=== PATIENT | male | born 1965 | race Caucasian/White ===

== ENCOUNTER 2021-04-05 17:25 | Inpatient (IN) | payer OTHER, MEDICARE ==
[~2021-04-05] VITALS: Ht 162.6 cm; Wt 59.6 kg
[2021-04-05] MEDS ORDERED: FLOMAX0.4 MG PO (17:49)
[2021-04-05] MEDS ORDERED: LIPITOR40 MG PO (17:50)
[2021-04-05] MEDS ORDERED: ATARAX 25 MG TA25 MG PO (17:50)
[2021-04-05] MEDS ORDERED: PHENOBARBITAL32.4 MG PO (17:50)
[2021-04-05 18:37] LABS: BASOPHILS 0.3 % (0-2); EOSINOPHILS 0.3 % (0-7); HEMATOCRIT 45.8 % (42.0-54.0); HEMOGLOBIN 15.8 g/dL (13.5-17.5); LYMPHOCYTES 7.2 % (15-50); MCH 31.9 pg (26.0-34.0); MCHC 34.4 g/dL (31.0-37.0); MCV 92.9 fL (80.0-100.0); MEAN PLATELET VOLUME 7.7 fL (7.4-10.4); MONOCYTES 7.5 % (2-11); NEUTROPHILS 84.7 % (40-80); RBC 4.94 10x6/uL (4.20-6.10); RDW 14.1 % (11.5-14.5); WBC 10.2 10x3/uL (4.8-10.8)
[2021-04-05 18:45] LABS: PLATELET COUNT 185 10x3/uL (130-400)
[2021-04-05 18:47] LABS: CALC OSMOLALITY 251 mosm/kg (275-300); CALCIUM 8.8 mg/dL (8.5-10.1); CARBON DIOXIDE 29.3 mmol/L (21.0-32.0); CHLORIDE - SERUM 90 mmol/L (98-107); GLUCOSE 113 mg/dL (74-106); SODIUM 125 mmol/L (136-145); UREA NITROGEN 11 mg/dL (7-18); eGFR NON AFRICAN AMERICAN 82 mL/min (90-120)
[2021-04-05 18:53] LABS: ALBUMIN 3.5 g/dL (3.4-5.0); ALKALINE PHOSPHATASE 112 U/L (30-120); ALT (SGPT) 25 U/L (10-68); BILIRUBIN - TOTAL 0.46 mg/dL (0.2-1.3); PROTEIN - SERUM 7.4 g/dL (6.4-8.2)
[2021-04-05 19:07] LABS: PRO BNP 48 pg/mL (0-125)
[2021-04-05 19:09] LABS: TROPONIN-I < 0.017 ng/mL (0.000-0.060)
[2021-04-05 19:30] LABS: APTT 32.8 SECONDS (22.8-39.4); INR 1.24 (0.85-1.17); PROTIME 14.5 SECONDS (11.6-15.0)
[2021-04-05 19:32] LABS: D-DIMER-QUANTITATIVE 0.6 ug/mLFEU (0.20-0.54)
--- NOTE | 2021-04-05 19:35 | NUR ---
PT REPORT GIVEN TO DARRION CHANDRA
[2021-04-05 19:44] LABS: SARS-CoV-2 ANTIGEN NEGATIVE- SARS-COV-2 (NEGATIVE)
[2021-04-05 23:25] VITALS: BP 98/59
--- NOTE | 2021-04-06 02:40 | NUR ---
COMING OUT OF ROOM ACROSS [facility] FROM PT NOTED PT AND HIS MOTHER IN FLOOR. MOTHER STATES SHE HAD ATTEMPTED TO HELP PT TO BEDSIDE COMMODE BY HERSELF WHEN PT BECOME UNSTEADY AND PULLED HER TO FLOOR WITH HIM. NO INJURY NOTED TO PT. PT'S MOTHER P/W ABRASION POSTERIOR RIGHT FOREARM. DENIES OTHER INJURY. AREA CLEANED AND DRESSED. INSTRUCTED MOTHER TO CONTACT STAFF IF PT NEEDED UP FOR ANY REASON. PT WAS NOTED TO HAVE DEFECATED. ATTEMPTED TO CLEAN PT W/WIPES BUT PT REFUSES TO ROLL OR COOPERATE WHEN BACK IN BED.
--- NOTE | 2021-04-06 02:43 | NUR ---
CONTACTED SULEMAN RAO FOR ATIVAN ORDER. ORDER FOR 0.5MG ATIVAN IV OBTAINED.
[2021-04-06 03:08] VITALS: BP 104/58
--- NOTE | 2021-04-06 03:15 | NUR ---
PT CONTINUES TO REFUSE TO LAY BACK OR ROLL OVER TO ALLOW HIMSELF TO BE CLEANED BY STAFF. PT'S MOTHER AT BEDSIDE. WILL CONTINUE TO MONITOR. MOTHER STATES SHE WILL CONTACT STAFF WHEN HE LAYS BACK AND BECOMES COOPERATIVE.
[2021-04-06 04:19] LABS: BILIRUBIN NEGATIVE (NEGATIVE); KETONE NEGATIVE (NEGATIVE); NITRITE NEGATIVE (NEGATIVE); UROBILINOGEN NORMAL mg/dL (< 2)
[2021-04-06 04:33] LABS: UDS - AMPHET NEGATIVE QUAL (NEGATIVE); UDS - BARB NEGATIVE QUAL (NEGATIVE); UDS - BENZO NEGATIVE QUAL (NEGATIVE); UDS - COCAINE NEGATIVE QUAL (NEGATIVE); UDS - OPIATE POSITIVE QUAL (NEGATIVE); UDS - PCP NEGATIVE QUAL (NEGATIVE); UDS - THC NEGATIVE QUAL (NEGATIVE)
[2021-04-06 05:36] LABS: BASOPHILS 0.1 % (0-2); EOSINOPHILS 0 % (0-7); HEMATOCRIT 39.5 % (42.0-54.0); HEMOGLOBIN 13.5 g/dL (13.5-17.5); MCH 31.9 pg (26.0-34.0); MCHC 34.1 g/dL (31.0-37.0); MCV 93.5 fL (80.0-100.0); NEUTROPHILS 93.9 % (40-80); PLATELET COUNT 173 10x3/uL (130-400); RBC 4.22 10x6/uL (4.20-6.10); RDW 14.1 % (11.5-14.5); WBC 10.8 10x3/uL (4.8-10.8)
[2021-04-06 05:45] LABS: ALBUMIN 2.8 g/dL (3.4-5.0); ALKALINE PHOSPHATASE 82 U/L (30-120); ALT (SGPT) 23 U/L (10-68); BILIRUBIN - TOTAL 0.31 mg/dL (0.2-1.3); CALC OSMOLALITY 255 mosm/kg (275-300); CARBON DIOXIDE 23.2 mmol/L (21.0-32.0); CHLORIDE - SERUM 96 mmol/L (98-107); GLUCOSE 138 mg/dL (74-106); MAGNESIUM - SERUM 1.6 mg/dL (1.8-2.4); POTASSIUM - SERUM 4.4 mmol/L (3.5-5.1); SODIUM 127 mmol/L (136-145); UREA NITROGEN 9 mg/dL (7-18); eGFR NON AFRICAN AMERICAN 82 mL/min (90-120)
[2021-04-06 08:00] VITALS: BP 96/51
[2021-04-06 09:46] VITALS: Ht 162.6 cm; Wt 59.6 kg
[2021-04-06 09:57] VITALS: BP 90/59
[2021-04-06 21:00] VITALS: BP 95/41
[2021-04-07] VITALS: BP 94/43
--- NOTE | 2021-04-07 01:14 | NUR ---
REPORT RECEIVED. PT A&O, UP IN BED WITH MOM AT BEDSIDE. NO S/S OF DISTRESS OBSERVED. RR EVEN & UNLABORED ON RA. IV TO R FA INFUSING NS AT 75 CC/HR. BED LOCKED AND LOWERED, CL IN REACH. ASSESSMENT COMPLETE. WILL CONT POC.
[2021-04-07 04:00] VITALS: BP 106/49
[2021-04-07 06:40] LABS: BASOPHILS 0.5 % (0-2); EOSINOPHILS 0.6 % (0-7); HEMATOCRIT 37.3 % (42.0-54.0); HEMOGLOBIN 12.7 g/dL (13.5-17.5); LYMPHOCYTES 11.6 % (15-50); MCH 31.7 pg (26.0-34.0); MEAN PLATELET VOLUME 8.2 fL (7.4-10.4); MONOCYTES 7.9 % (2-11); NEUTROPHILS 79.4 % (40-80); PLATELET COUNT 154 10x3/uL (130-400); RBC 4.01 10x6/uL (4.20-6.10); RDW 14.5 % (11.5-14.5)
[2021-04-07 06:56] LABS: WBC 7.6 10x3/uL (4.8-10.8)
[2021-04-07 07:24] LABS: ALBUMIN 2.6 g/dL (3.4-5.0); ANION GAP 8.5 mmol/L (8-16); BILIRUBIN - TOTAL 0.41 mg/dL (0.2-1.3); C-REACTIVE PROTEIN 10.3 mg/dL (0.0-0.9); CARBON DIOXIDE 26.1 mmol/L (21.0-32.0); CREATININE - SERUM 1.1 mg/dL (0.6-1.3); MAGNESIUM - SERUM 1.6 mg/dL (1.8-2.4); POTASSIUM - SERUM 3.6 mmol/L (3.5-5.1); PROTEIN - SERUM 5.9 g/dL (6.4-8.2)
[2021-04-07 07:56] VITALS: BP 122/70
--- NOTE | 2021-04-07 19:30 | NUR ---
PT IN BED, AAO X 3, MOTHER AT BEDSIDE, PT MENTALLY CHALLANGED, PT RESP EVEN AND UNLABORED, NO DISTRESS NOTED, CL IN REACH, SR UP X 2.
[2021-04-08] VITALS: BP 96/47
--- NOTE | 2021-04-08 03:09 | NUR ---
I have reviewed this patient and I concur with the Shift Assessment completed by the Licensed Practical Nurse today this shift.
[2021-04-08 04:44] VITALS: BP 149/72
[2021-04-08 08:01] LABS: BASOPHILS 0.1 % (0-2); EOSINOPHILS 0 % (0-7); HEMATOCRIT 39.1 % (42.0-54.0); HEMOGLOBIN 13.5 g/dL (13.5-17.5); LYMPHOCYTES 5.2 % (15-50); MCH 31.9 pg (26.0-34.0); MCHC 34.4 g/dL (31.0-37.0); MCV 92.7 fL (80.0-100.0); MEAN PLATELET VOLUME 7.9 fL (7.4-10.4); MONOCYTES 2.5 % (2-11); NEUTROPHILS 92.2 % (40-80); PLATELET COUNT 158 10x3/uL (130-400); RBC 4.22 10x6/uL (4.20-6.10); RDW 14.6 % (11.5-14.5); WBC 7.3 10x3/uL (4.8-10.8)
[2021-04-08 08:08] LABS: ALBUMIN 3.1 g/dL (3.4-5.0); ALKALINE PHOSPHATASE 95 U/L (30-120); ALT (SGPT) 30 U/L (10-68); BILIRUBIN - TOTAL 0.34 mg/dL (0.2-1.3); CALC OSMOLALITY 262 mosm/kg (275-300); CALCIUM 8.4 mg/dL (8.5-10.1); CARBON DIOXIDE 24.3 mmol/L (21.0-32.0); CHLORIDE - SERUM 98 mmol/L (98-107); CREATININE - SERUM 0.9 mg/dL (0.6-1.3); GLUCOSE 142 mg/dL (74-106); MAGNESIUM - SERUM 1.7 mg/dL (1.8-2.4); POTASSIUM - SERUM 3.8 mmol/L (3.5-5.1); PROTEIN - SERUM 6.5 g/dL (6.4-8.2); SODIUM 131 mmol/L (136-145); UREA NITROGEN 8 mg/dL (7-18); eGFR NON AFRICAN AMERICAN > 90 mL/min (90-120)
--- NOTE | 2021-04-08 08:26 | NUR ---
AM MEDS GIVEN AT THIS TIME WITH ASSISTANCE FROM MOTHER AT BEDSIDE. BREAKFAST TRAY GIVEN, NO FURTHER NEEDS VOICED. NO PAIN REPORTED. IV ANTIBIOTICS INFUSING. CLWR.
--- NOTE | 2021-04-08 10:51 | NUR ---
PT SITTING ON SIDE OF BED, RR EVEN NON LABORED. PT DAD AT BEDSIDE. NO NEEDS VOICED. CLWR.
[2021-04-08 11:29] LABS: APTT 31.7 SECONDS (22.8-39.4); INR 1.19 (0.85-1.17)
[2021-04-08 20:39] VITALS: BP 97/48
--- NOTE | 2021-04-08 21:08 | NUR ---
PT IN CHAIR WITH MOM AT SIDE, PT RESP EVEN AND UNLABORED, NO DISTRESS NOTED, CL IN REACH, SR UP X 2.
[2021-04-08 23:36] VITALS: BP 122/54
[2021-04-09 04:17] VITALS: BP 137/68
--- NOTE | 2021-04-09 04:59 | NUR ---
I have reviewed this patient and I concur with the Shift Assessment completed by the Licensed Practical Nurse today this shift.
[2021-04-09 06:06] LABS: BASOPHILS 0.1 % (0-2); EOSINOPHILS 0 % (0-7); HEMATOCRIT 37.8 % (42.0-54.0); HEMOGLOBIN 13.2 g/dL (13.5-17.5); LYMPHOCYTES 9.1 % (15-50); MCH 32.2 pg (26.0-34.0); MCHC 34.9 g/dL (31.0-37.0); MCV 92.4 fL (80.0-100.0); MEAN PLATELET VOLUME 7.9 fL (7.4-10.4); MONOCYTES 2.9 % (2-11); NEUTROPHILS 87.9 % (40-80); PLATELET COUNT 182 10x3/uL (130-400); RBC 4.09 10x6/uL (4.20-6.10); RDW 14.6 % (11.5-14.5); WBC 6.7 10x3/uL (4.8-10.8)
[2021-04-09 06:25] LABS: ALKALINE PHOSPHATASE 92 U/L (30-120); ALT (SGPT) 31 U/L (10-68); BILIRUBIN - TOTAL 0.28 mg/dL (0.2-1.3); CALC OSMOLALITY 267 mosm/kg (275-300); CALCIUM 8.6 mg/dL (8.5-10.1); CARBON DIOXIDE 27.5 mmol/L (21.0-32.0); CHLORIDE - SERUM 99 mmol/L (98-107); GLUCOSE 124 mg/dL (74-106); MAGNESIUM - SERUM 1.7 mg/dL (1.8-2.4); POTASSIUM - SERUM 4.3 mmol/L (3.5-5.1); PROTEIN - SERUM 6.7 g/dL (6.4-8.2); SODIUM 134 mmol/L (136-145); eGFR NON AFRICAN AMERICAN 82 mL/min (90-120)
[2021-04-09 06:27] LABS: UREA NITROGEN 11 mg/dL (7-18)
[2021-04-09 08:21] VITALS: BP 106/61
--- NOTE | 2021-04-09 08:52 | NUR ---
AM MEDS GIVEN AT THIS TIME WITH ASSISTANCE OF HIS MOTHER. RR EVEN NON LABORED ON ROOM AIR. IV INFUSING WITHOUT COMPLICATIONS. PT AWAKE AND ALERT LOOKING AT COMIC BOOK. NO NEEDS VOICED. CLWR.
[2021-04-09 12:18] VITALS: BP 121/64
[2021-04-09] MEDS ORDERED: TESSALON PERLE100 MG PO (12:20)
[2021-04-09] MEDS ORDERED: FLORAJEN DIGES1 EACH PO (12:21)
[2021-04-09] MEDS ORDERED: FLUTICASONE PRO16 GM NASAL (12:21)
[2021-04-09] MEDS ORDERED: PROTONIX40 MG PO (12:21)
[2021-04-09] MEDS ORDERED: SINGULAIR10 MG PO (12:21)
[2021-04-09] MEDS ORDERED: MUCINEX600 MG PO (12:21)
[2021-04-09] MEDS ORDERED: VITAMIN D325 MC1 PO (12:21)
[2021-04-09] MEDS ORDERED: DULERA 200 MCG8.8 GM INH (12:21)
[2021-04-09] MEDS ORDERED: MELATONIN 3 MG1 TAB PO (12:22)
[2021-04-09] MEDS ORDERED: ALBUTEROL SULF8.5 GM INH (12:22)
[2021-04-09] MEDS ORDERED: OMNICEF300 MG PO (12:23)
[2021-04-09] MEDS ORDERED: VIBRAMYCIN 100100 MG PO (12:23)
--- NOTE | 2021-04-09 12:55 | NUR ---
PT TO BE D/C HOME/ASSISTED LIVING TODAY. PT WILL GO WITH HIS MOTHER UPON D/C, DISCUSSED MEDICATIONS AND DIGITAL MARKETING CONSULTANT ARRANGMENTS WITH CASE MANAGEMENT.
--- NOTE | 2021-04-09 14:35 | NUR ---
D/C INSTRUCTIONS GIVN TO PT MOM AT THIS TIME INCLUDING MEDICATIONS AND FOLLOW UP APPOINTMENTS. IV D/C'D CATHETER INTACT, DRESSING APPLIED. ALL BELONGINGS GATHERED.
--- NOTE | 2021-04-09 14:50 | NUR ---
PT AMBULATED OUT OF BUILDING WITH NURSE AT SIDE AND MOTHER. ALL BELONGINGS WITH PT TIME OF D/C. NO DISTRESS NOTED ON DEPARTURE.
== END 2021-04-09 14:51 | disposition home or self-care (01) | DRG 194 ==
LOC: D.ER 17:25 → D.M2 20:35 → D.EDHOLD 20:35 → D.M2 04-06 06:08
PROVIDERS: Family Medicine; Internal Medicine Pulmonary Disease; ADMIT Emergency Medicine; ATTEND Emergency Medicine
DX: J18.9 Pneumonia, unspecified organism (principal); E87.1 Hypo-osmolality and hyponatremia; J98.11 Atelectasis; R06.6 Hiccough; Z20.822 Contact with and (suspected) exposure to COVID-19; E78.5 Hyperlipidemia, unspecified; G47.00 Insomnia, unspecified; Q90.9 Down syndrome, unspecified; G40.909 Epilepsy, unspecified, not intractable, without status epilepticus; N40.0 Benign prostatic hyperplasia without lower urinary tract symptoms; F41.9 Anxiety disorder, unspecified; E83.42 Hypomagnesemia

== ENCOUNTER 2021-04-19 09:09 | Inpatient (IN) | payer OTHER, MEDICARE ==
[~2021-04-19] VITALS: Ht 162.6 cm; Wt 54.5 kg
[~2021-04-19 09:09] MED LIST: ALBUTEROL SULF8.5 GM INH; ATARAX 25 MG TA25 MG PO; DULERA 200 MCG8.8 GM INH; FLOMAX0.4 MG PO; FLORAJEN DIGES1 EACH PO; FLUTICASONE PRO16 GM NASAL; LIPITOR40 MG PO; MELATONIN 3 MG1 TAB PO; MUCINEX600 MG PO; OMNICEF300 MG PO; PHENOBARBITAL32.4 MG PO; PROTONIX40 MG PO; SINGULAIR10 MG PO; TESSALON PERLE100 MG PO; VIBRAMYCIN 100100 MG PO; VITAMIN D325 MC1 PO
[2021-04-19 10:00] LABS: BASOPHILS 0.9 % (0-2); EOSINOPHILS 0.4 % (0-7); HEMATOCRIT 43.5 % (42.0-54.0); HEMOGLOBIN 14.8 g/dL (13.5-17.5); LYMPHOCYTES 17.9 % (15-50); MCH 31.4 pg (26.0-34.0); MCV 92.4 fL (80.0-100.0); MEAN PLATELET VOLUME 7.4 fL (7.4-10.4); MONOCYTES 8.7 % (2-11); NEUTROPHILS 72.1 % (40-80); PLATELET COUNT 202 10x3/uL (130-400); RBC 4.71 10x6/uL (4.20-6.10); RDW 14.2 % (11.5-14.5); WBC 5.6 10x3/uL (4.8-10.8)
[2021-04-19 10:26] LABS: CALC OSMOLALITY 252 mosm/kg (275-300); CALCIUM 8.6 mg/dL (8.5-10.1); CARBON DIOXIDE 28.9 mmol/L (21.0-32.0); CHLORIDE - SERUM 93 mmol/L (98-107); CREATININE - SERUM 0.9 mg/dL (0.6-1.3); GLUCOSE 112 mg/dL (74-106); POTASSIUM - SERUM 4.1 mmol/L (3.5-5.1); SODIUM 126 mmol/L (136-145); UREA NITROGEN 9 mg/dL (7-18); eGFR NON AFRICAN AMERICAN > 90 mL/min (90-120)
[2021-04-19 10:31] LABS: ALBUMIN 3.4 g/dL (3.4-5.0); ALKALINE PHOSPHATASE 135 U/L (30-120); ALT (SGPT) 25 U/L (10-68); BILIRUBIN - TOTAL 0.55 mg/dL (0.2-1.3); PROTEIN - SERUM 7.1 g/dL (6.4-8.2)
--- NOTE | 2021-04-19 16:52 | NUR ---
BLOOD GLUCOSE 108
[2021-04-20 04:48] VITALS: BP 97/42; Ht 162.6 cm; Wt 54.5 kg
[2021-04-20 06:07] VITALS: BP 95/54
--- NOTE | 2021-04-20 07:20 | NUR ---
RECIEVE REPORT. RESTING IN BED WITH EYES CLOSED. FAMILY AT BEDSIDE. NO SIGNS OF DISTRESS. CONTINUE PLAN OF CARE AND SAFETY PRECAUTIONS.
[2021-04-20 08:05] VITALS: BP 113/68
[2021-04-20 12:27] VITALS: BP 102/48
[2021-04-20 18:29] LABS: CALC OSMOLALITY 269 mosm/kg (275-300); CARBON DIOXIDE 29.8 mmol/L (21.0-32.0); CHLORIDE - SERUM 100 mmol/L (98-107); CREATININE - SERUM 0.9 mg/dL (0.6-1.3); GLUCOSE 115 mg/dL (74-106); POTASSIUM - SERUM 3.8 mmol/L (3.5-5.1); SODIUM 135 mmol/L (136-145); UREA NITROGEN 11 mg/dL (7-18); eGFR NON AFRICAN AMERICAN > 90 mL/min (90-120)
--- NOTE | 2021-04-20 18:29 | NUR ---
ALERT. MOTHER AT BEDSIDE. PULLED OUT IV. LABS DRAWN FOR SODIUM LEVEL. PULLED IV OUT. IV ON HOLD UNTIL SODIUM LEVEL RESULTS PER .
--- NOTE | 2021-04-20 19:33 | NUR ---
RECIEVED UP IN BED WITH BLANKET OVER HEAD. MOTHER AT BEDSIDE AND ASKED THIS NURSE TO PLEASE NOT WAKE HIM UP. NO DISTRESS OBSERVED.
[2021-04-20 23:07] VITALS: BP 102/45
[2021-04-21 00:57] VITALS: BP 93/45
[2021-04-21 04:51] VITALS: BP 91/31
[2021-04-21 06:32] LABS: BASOPHILS 1.1 % (0-2); EOSINOPHILS 1.3 % (0-7); HEMATOCRIT 39.2 % (42.0-54.0); HEMOGLOBIN 13.4 g/dL (13.5-17.5); LYMPHOCYTES 27.1 % (15-50); MCH 31.9 pg (26.0-34.0); MCHC 34.2 g/dL (31.0-37.0); MCV 93.4 fL (80.0-100.0); MEAN PLATELET VOLUME 7.9 fL (7.4-10.4); NEUTROPHILS 60.5 % (40-80); PLATELET COUNT 193 10x3/uL (130-400); RDW 14.7 % (11.5-14.5); WBC 4.6 10x3/uL (4.8-10.8)
[2021-04-21 06:35] LABS: CALC OSMOLALITY 272 mosm/kg (275-300); CALCIUM 8.4 mg/dL (8.5-10.1); CHLORIDE - SERUM 103 mmol/L (98-107); CREATININE - SERUM 0.9 mg/dL (0.6-1.3); GLUCOSE 107 mg/dL (74-106); MAGNESIUM - SERUM 1.8 mg/dL (1.8-2.4); SODIUM 137 mmol/L (136-145); UREA NITROGEN 9 mg/dL (7-18); eGFR NON AFRICAN AMERICAN > 90 mL/min (90-120)
[2021-04-21 06:36] LABS: POTASSIUM - SERUM 4.6 mmol/L (3.5-5.1)
--- NOTE | 2021-04-21 07:20 | NUR ---
RECIEVE REPORT. RESTING IN BED WITH EYES CLOSED. FAMILY AT BEDSIDE. SODIUM LEVEL 137. NO SIGNS OF DISTRESS. CONTINUE PLAN OF CARE AND SAFETY PRECAUTIONS.
[2021-04-21 08:00] VITALS: BP 97/53
[2021-04-21 12:00] VITALS: BP 107/52
[2021-04-21 16:00] VITALS: BP 93/45
--- NOTE | 2021-04-21 17:19 | MORECARE ---
CASE MANAGEMENT DISCHARGE SUMMARY PATIENT: ALONDRA ANDREW UNIT: [id number] ADM DATE: 04/20/21 AGE: 56 : 67 SEX: M ROOM/BED: D.2118 AUTHOR: MAHI,DOC PHYSICIAN: REFERRING PHYSICIAN: MICHELLE REYES MD DATE OF SERVICE: 04/21/21 Case Management Discharge Planning Summary COMMENTS ENTERED DATE: 04/21/21 17:15 CT COMMENT TYPE: Discharge Planning REVIEWER: Gordon Ball CM met with Mrs. Menendez's mother of the patient, Yojana Menendez, to complete DC plan and to evaluate needs. Mrs. Menendez stated that the patient readmitted because he had uncontrolled hiccups as well as bladder and bowel problems. Mrs. Menendez stated that the patient was able to obtain his medications after last discharge but unfortunately was not able to keep his follow up appointment. Mrs. Menendez stated that the patient followed the dc instructions given to him. It appears that this readmission was due to an exacerbation of his chronic conditions related to his delayed disability. The patient lives in an assisted living apartment, called , during the week and on weekends with his mother. The coordinator for is Antoinette ([phone]). Mrs. Menendez believes that any care that occurs at the residence must be coordinated through Antoinette. The residence is safe and has electricity and running water. Mrs. Menendez stated that the patient has no problems paying for medications and the patient fills his medications at [facility]. Mrs. Menendez stated that his primary care physician is Dr. Karimi. RADHA discussed availability of home health, rehab services, and medical equipment. Mrs. Menendez declined SNF, IPR, and DME but would like to have home health monitor the patient's sodium and medications for a while post discharge. Mrs. Menendez would like [facility] services with either [facility], [facility], or [facility]. CHRIS signed and placed in chart. RADHA spoke with Antoinette. Antoinette stated that home health is welcome to conduct visits at the residences. Mrs. Menendez voiced no other patient needs at this time and is satisfied with DC plan. DC IMM delivered, explained, signed by Mrs. Menendez, and placed in chart. Signed form also left with Mrs. Menendez. CM will continue to follow and will assist as needed with dc plans/needs. DCP REVIEW SUMMARY ANTICIPATED D/C DATE: 04/21/2021 EXPECTED LOS : 1 CASE STATUS: DCP Initiated INITIAL REVIEW: 04/19/2021 INITIAL REVIEWER: Gordon Ball FINAL DISCHARGE DISPOSITION: : FINAL REVIEWER: FINAL REVIEW DATE: DCP Focus Questions & Answers DCP Evaluation QUESTION: ANSWER Patient gives permission to discuss discharge plans with: (name, relationship and number) : mother of the patient, Yojana Menendez, Patient's ability to cope with chronic illness : d. No chronic illness Patient's current cognitive status: : Oriented to situation Family / Caregiver's ability to cope with chronic illness: : a. Adequate (ability to meet patient's medical needs, ensures patient attends medical appts.) Patient and/or caregiver agree upon recommended discharge plan? : Yes Physical Status: : Partial care dependence Family / Caregiver's ability to cope with chronic illness: : a. Adequate (ability to meet patient's medical needs, ensures patient attends medical appts.) Functional screen assessment: : Basic needs can adequately be met by self Does the patient have the ability to pay for or attain post discharge needs / services? : Yes Partial Dependence, assistance required for: : Ambulation / Mobility Partial Dependence, assistance required for: : Bathing Partial Dependence, assistance required for: : Dressing Partial Dependence, assistance required for: : Eating Living Arrangements: : Assisted Living Is there a likelihood that the patient will require additional services to return to the preadmission environment? : Yes Equipment needed for post hospitalization: : None Patient with capacity for self-care or can be cared for in same environment as prior to hospitalization? : Yes Facility / Agency name and contact information from Question 3 (if applicable): : [facility] Physical environment modification needed / anticipated for discharge: : No Medication Management: : Patient states can afford medications Medication Management: : Patient states can read and understand medication labels Pharmacy name(s): : [facility] Does Patient have transportation to get home and to follow-up medical appointments when discharged from the hospital? : Yes Would patient like to participate in any Care Coordination programs (if applicable): : Not applicable Does the patient have electricity at home? : Yes Does the patient have running water in their house? : Yes Equipment in use: : None Mental health screen: : No mental health history DCP Re-evaluation QUESTION: ANSWER Would patient like to participate in any Care Coordination programs (if applicable): : Not applicable PATIENT: ALONDRA ANDREW ENCOUNTER: [id number] MEDICAL RECORD#: [id number] ADMISSION DATE: 04/20/2021 DISCHARGE DATE: ATTENDING MD: TAMI: AGE: 56 MARITAL STATUS: M DC PLAN ID: [id number] FACILITY: [facility] PRINTED ON: 04/21/21 17:19 CT All edits/amendments must be made on the electronic document DICTATION DATE: 04/21/211718 HOSPITAL AIDE: HUYEN 04/21/211718 RPT#: [id number] DC DATE: STATUS: ADM IN [facility] [address] [place] [address] END OF REPORT
[2021-04-21 21:31] VITALS: BP 91/47
[2021-04-22 00:15] VITALS: BP 84/46
--- NOTE | 2021-04-22 00:29 | NUR ---
RESTING QUIETLY IN BED. FATHER AT BEDSIDE. TOOK MEDS VERY WELL. NO DISTRESS.
[2021-04-22 05:05] VITALS: BP 108/65
[2021-04-22 06:19] LABS: BASOPHILS 1.2 % (0-2); EOSINOPHILS 1.8 % (0-7); HEMATOCRIT 39.7 % (42.0-54.0); HEMOGLOBIN 13.5 g/dL (13.5-17.5); LYMPHOCYTES 41.4 % (15-50); MCHC 34.1 g/dL (31.0-37.0); MCV 93.8 fL (80.0-100.0); MEAN PLATELET VOLUME 7.6 fL (7.4-10.4); MONOCYTES 10.3 % (2-11); NEUTROPHILS 45.3 % (40-80); PLATELET COUNT 196 10x3/uL (130-400); RBC 4.23 10x6/uL (4.20-6.10); RDW 14.4 % (11.5-14.5)
[2021-04-22 06:21] LABS: ALBUMIN 2.9 g/dL (3.4-5.0); ALKALINE PHOSPHATASE 113 U/L (30-120); ALT (SGPT) 26 U/L (10-68); BILIRUBIN - TOTAL 0.36 mg/dL (0.2-1.3); CALC OSMOLALITY 276 mosm/kg (275-300); CALCIUM 8.3 mg/dL (8.5-10.1); CARBON DIOXIDE 29.9 mmol/L (21.0-32.0); CHLORIDE - SERUM 105 mmol/L (98-107); GLUCOSE 104 mg/dL (74-106); POTASSIUM - SERUM 4.3 mmol/L (3.5-5.1); PROTEIN - SERUM 6.3 g/dL (6.4-8.2); SODIUM 139 mmol/L (136-145); UREA NITROGEN 9 mg/dL (7-18); eGFR NON AFRICAN AMERICAN 82 mL/min (90-120)
[2021-04-22 07:19] LABS: WBC 3.3 10x3/uL (4.8-10.8)
[2021-04-22 07:33] VITALS: BP 104/42
--- NOTE | 2021-04-22 08:38 | MORECARE ---
CASE MANAGEMENT DISCHARGE SUMMARY PATIENT: ALONDRA ANDREW UNIT: [id number] ADM DATE: 04/20/21 AGE: 56 : 67 SEX: M ROOM/BED: D.2118 AUTHOR: MAHI,DOC PHYSICIAN: REFERRING PHYSICIAN: MICHELLE REYES MD DATE OF SERVICE: 04/22/21 Case Management Discharge Planning Summary COMMENTS ENTERED DATE: 04/22/21 8:25 CT COMMENT TYPE: Discharge Planning REVIEWER: Yuridia Diaz Received a call from Phyllis at [place], they no longer take [facility]. I called [facility] and spoke with Karen and order and clinical faxed. He lives at [address] [place] [address] and that was included in fax. ENTERED DATE: 04/21/21 17:15 CT COMMENT TYPE: Discharge Planning REVIEWER: Gordon Ball CM met with Mrs. Menendez's mother of the patient, Yojana Menendez, to complete DC plan and to evaluate needs. Mrs. Menendez stated that the patient readmitted because he had uncontrolled hiccups as well as bladder and bowel problems. Mrs. Menendez stated that the patient was able to obtain his medications after last discharge but unfortunately was not able to keep his follow up appointment. Mrs. Menendez stated that the patient followed the dc instructions given to him. It appears that this readmission was due to an exacerbation of his chronic conditions related to his delayed disability. The patient lives in an assisted living apartment, called [facility], during the week and on weekends with his mother. The coordinator for [facility] is Antoinette ([phone]). Mrs. Menendez believes that any care that occurs at the residence must be coordinated through Antoinette. The residence is safe and has electricity and running water. Mrs. Menendez stated that the patient has no problems paying for medications and the patient fills his medications at [facility]. Mrs. Menendez stated that his primary care physician is Dr. Karimi. RADHA discussed availability of home health, rehab services, and medical equipment. Mrs. Menendez declined SNF, IPR, and DME but would like to have home health monitor the patient's sodium and medications for a while post discharge. Mrs. Menendez would like [facility] services with either [facility], [facility], or [facility]. CHRIS signed and placed in chart. CM spoke with Antoinette. Antoinette stated that home health is welcome to conduct visits at the residences. Mrs. Menendez voiced no other patient needs at this time and is satisfied with DC plan. DC IMM delivered, explained, signed by Mrs. Menendez, and placed in chart. Signed form also left with Mrs. Menendez. CM will continue to follow and will assist as needed with dc plans/needs. DCP REVIEW SUMMARY ANTICIPATED D/C DATE: 04/21/2021 EXPECTED LOS : 1 CASE STATUS: DCP Initiated INITIAL REVIEW: 04/19/2021 INITIAL REVIEWER: Gordon Ball FINAL DISCHARGE DISPOSITION: : FINAL REVIEWER: FINAL REVIEW DATE: DCP Focus Questions & Answers DCP Evaluation QUESTION: ANSWER Patient gives permission to discuss discharge plans with: (name, relationship and number) : mother of the patient, Yojana Menendez, Patient's ability to cope with chronic illness : d. No chronic illness Patient's current cognitive status: : Oriented to situation Family / Caregiver's ability to cope with chronic illness: : a. Adequate (ability to meet patient's medical needs, ensures patient attends medical appts.) Patient and/or caregiver agree upon recommended discharge plan? : Yes Physical Status: : Partial care dependence Family / Caregiver's ability to cope with chronic illness: : a. Adequate (ability to meet patient's medical needs, ensures patient attends medical appts.) Functional screen assessment: : Basic needs can adequately be met by self Does the patient have the ability to pay for or attain post discharge needs / services? : Yes Partial Dependence, assistance required for: : Ambulation / Mobility Partial Dependence, assistance required for: : Bathing Partial Dependence, assistance required for: : Dressing Partial Dependence, assistance required for: : Eating Living Arrangements: : Assisted Living Is there a likelihood that the patient will require additional services to return to the preadmission environment? : Yes Equipment needed for post hospitalization: : None Patient with capacity for self-care or can be cared for in same environment as prior to hospitalization? : Yes Facility / Agency name and contact information from Question 3 (if applicable): : [facility] Physical environment modification needed / anticipated for discharge: : No Medication Management: : Patient states can afford medications Medication Management: : Patient states can read and understand medication labels Pharmacy name(s): : [facility] Does Patient have transportation to get home and to follow-up medical appointments when discharged from the hospital? : Yes Would patient like to participate in any Care Coordination programs (if applicable): : Not applicable Does the patient have electricity at home? : Yes Does the patient have running water in their house? : Yes Equipment in use: : None Mental health screen: : No mental health history DCP Re-evaluation QUESTION: ANSWER Would patient like to participate in any Care Coordination programs (if applicable): : Not applicable PATIENT: ALONDRA ANDREW ENCOUNTER: [id number] MEDICAL RECORD#: [id number] ADMISSION DATE: 04/20/2021 DISCHARGE DATE: ATTENDING MD: TAMI: AGE: 56 MARITAL STATUS: M DC PLAN ID: [id number] FACILITY: [facility] PRINTED ON: 04/22/21 8:38 CT All edits/amendments must be made on the electronic document DICTATION DATE: 04/22/21836 IRRIGATIONIST DESIGNER: HUYEN 04/22/21836 RPT#: [id number] DC DATE: STATUS: ADM IN [facility] [address] [place] [address] END OF REPORT
[2021-04-22 10:22] VITALS: BP 81/34
[2021-04-22] MEDS ORDERED: KENALOG 0.1 % 115 GM TOPICAL (10:58)
--- NOTE | 2021-04-22 11:16 | MORECARE ---
CASE MANAGEMENT DISCHARGE SUMMARY PATIENT: ALONDRA ANDREW UNIT: [id number] ADM DATE: 04/20/21 AGE: 56 : 67 SEX: M ROOM/BED: D.2118 AUTHOR: MAHI,DOC PHYSICIAN: REFERRING PHYSICIAN: MICHELLE REYES MD DATE OF SERVICE: 04/22/21 Case Management Discharge Planning Summary COMMENTS ENTERED DATE: 04/22/21 11:07 CT COMMENT TYPE: Discharge Planning REVIEWER: Yuridia Diaz KAREN WITH [facility] STATES THEY CANNOT ACCEPT DUE TO INSURANCE. I SENT REFERRAL TO [facility] AND CONTACTED [facility] AND [facility]AVIER. I SPOKE WITH PATIENT'S MOTHER AND SHE STATES IF UNABLE TO GET [facility], HE WOULD BE OK WITHOUT IT. STATES CAN GET HIS NA CHECKED AT THE PCP OFFICE AND THEY HAVE A NURSE AT [facility] FOR MEDICATION MANAGEMENT IF NEEDED. ENTERED DATE: 04/22/21 8:25 CT COMMENT TYPE: Discharge Planning REVIEWER: Yuridia Diaz Received a call from Phyllis at [place], they no longer take [facility]. I called [facility] and spoke with Karen and order and clinical faxed. He lives at [address] [place] [address] and that was included in fax. ENTERED DATE: 04/21/21 17:15 CT COMMENT TYPE: Discharge Planning REVIEWER: Gordon Ball CM met with Mrs. Menendez's mother of the patient, Yojana Menendez, to complete DC plan and to evaluate needs. Mrs. Menendez stated that the patient readmitted because he had uncontrolled hiccups as well as bladder and bowel problems. Mrs. Menendez stated that the patient was able to obtain his medications after last discharge but unfortunately was not able to keep his follow up appointment. Mrs. Menendez stated that the patient followed the dc instructions given to him. It appears that this readmission was due to an exacerbation of his chronic conditions related to his delayed disability. The patient lives in an assisted living apartment, called [facility], during the week and on weekends with his mother. The coordinator for [facility] is Antoinette ([phone]). Mrs. Menendez believes that any care that occurs at the residence must be coordinated through Antoinette. The residence is safe and has electricity and running water. Mrs. Menendez stated that the patient has no problems paying for medications and the patient fills his medications at [facility]. Mrs. Menendez stated that his primary care physician is Dr. Karimi. CM discussed availability of home health, rehab services, and medical equipment. Mrs. Menendez declined SNF, IPR, and DME but would like to have home health monitor the patient's sodium and medications for a while post discharge. Mrs. Menendez would like [facility] services with either [facility], [facility], or [facility]. CHRIS signed and placed in chart. CM spoke with Antoinette. Antoinette stated that home health is welcome to conduct visits at the residences. Mrs. Menendez voiced no other patient needs at this time and is satisfied with DC plan. DC IMM delivered, explained, signed by Mrs. Menendez, and placed in chart. Signed form also left with Mrs. Menendez. CM will continue to follow and will assist as needed with dc plans/needs. DCP REVIEW SUMMARY ANTICIPATED D/C DATE: 04/21/2021 EXPECTED LOS : 1 CASE STATUS: DCP Initiated INITIAL REVIEW: 04/19/2021 INITIAL REVIEWER: Gordon Ball FINAL DISCHARGE DISPOSITION: : FINAL REVIEWER: FINAL REVIEW DATE: NEP Focus Questions & Answers DCP Evaluation QUESTION: ANSWER Patient gives permission to discuss discharge plans with: (name, relationship and number) : mother of the patient, Yojana Mennedez, Patient's ability to cope with chronic illness : d. No chronic illness Patient's current cognitive status: : Oriented to situation Family / Caregiver's ability to cope with chronic illness: : a. Adequate (ability to meet patient's medical needs, ensures patient attends medical appts.) Patient and/or caregiver agree upon recommended discharge plan? : Yes Physical Status: : Partial care dependence Family / Caregiver's ability to cope with chronic illness: : a. Adequate (ability to meet patient's medical needs, ensures patient attends medical appts.) Functional screen assessment: : Basic needs can adequately be met by self Does the patient have the ability to pay for or attain post discharge needs / services? : Yes Partial Dependence, assistance required for: : Ambulation / Mobility Partial Dependence, assistance required for: : Bathing Partial Dependence, assistance required for: : Dressing Partial Dependence, assistance required for: : Eating Living Arrangements: : Assisted Living Is there a likelihood that the patient will require additional services to return to the preadmission environment? : Yes Equipment needed for post hospitalization: : None Patient with capacity for self-care or can be cared for in same environment as prior to hospitalization? : Yes Facility / Agency name and contact information from Question 3 (if applicable): : [facility] Physical environment modification needed / anticipated for discharge: : No Medication Management: : Patient states can afford medications Medication Management: : Patient states can read and understand medication labels Pharmacy name(s): : [facility] Does Patient have transportation to get home and to follow-up medical appointments when discharged from the hospital? : Yes Would patient like to participate in any Care Coordination programs (if applicable): : Not applicable Does the patient have electricity at home? : Yes Does the patient have running water in their house? : Yes Equipment in use: : None Mental health screen: : No mental health history DCP Re-evaluation QUESTION: ANSWER Would patient like to participate in any Care Coordination programs (if applicable): : Not applicable PATIENT: ALONDRA ANDREW ENCOUNTER: [id number] MEDICAL RECORD#: [id number] ADMISSION DATE: 04/20/2021 DISCHARGE DATE: ATTENDING MD: TAMI: AGE: 56 MARITAL STATUS: M DC PLAN ID: [id number] FACILITY: [facility] PRINTED ON: 04/22/21 11:16 CT All edits/amendments must be made on the electronic document DICTATION DATE: 04/22/21 1116 ACADEMIC SUPPORT DIRECTOR: HUYEN 04/22/21 1116 RPT#: [id number] DC DATE: STATUS: ADM IN [facility] [address] [place] [address] END OF REPORT
--- NOTE | 2021-04-22 13:00 | NUR ---
NURSE REVIEWS DC INSTRUCTIONS WITH PATIENT AND HIS MOTHER. REVIEWED STOPPED MEDS AND FOLLOW UP APPT.
--- NOTE | 2021-04-22 13:21 | NUR ---
NURSE WALKS PATIENT OUT TO PRIVATE VEHICLE WHERE HIS MOM DRIVES HIM HOME. BELONGINGS IN HAND. NAD NOTED.
--- NOTE | 2021-04-22 17:42 | MORECARE ---
CASE MANAGEMENT DISCHARGE SUMMARY PATIENT: ALONDRA ANDREW UNIT: [id number] ADM DATE: 04/20/21 AGE: 56 : 67 SEX: M ROOM/BED: D.6028 AUTHOR: MAHI,DOC PHYSICIAN: REFERRING PHYSICIAN: MICHELLE REYES MD DATE OF SERVICE: 04/22/21 Case Management Discharge Planning Summary COMMENTS ENTERED DATE: 04/22/21 17:29 CT COMMENT TYPE: Discharge Planning REVIEWER: Yuridia Rahman states that they cannot help with HHS because of [employer]. I had spoken to patient's mother and she states "I don't think he needs it." She states he can get his Na level checked at his PCP's office and now they know to restrict his water intake. ENTERED DATE: 04/22/21 11:07 CT COMMENT TYPE: Discharge Planning REVIEWER: Yuridia STRINGER WITH [facility] STATES THEY CANNOT ACCEPT DUE TO INSURANCE. I SENT REFERRAL TO [facility] AND CONTACTED [facility]. I SPOKE WITH PATIENT'S MOTHER AND SHE STATES IF UNABLE TO GET [facility], HE WOULD BE OK WITHOUT IT. STATES CAN GET HIS NA CHECKED AT THE PCP OFFICE AND THEY HAVE A NURSE AT [facility] FOR MEDICATION MANAGEMENT IF NEEDED. ENTERED DATE: 04/22/21 8:25 CT COMMENT TYPE: Discharge Planning REVIEWER: Yuridia Emily Received a call from Phyllis at [facility], they no longer take [employer]. I called [facility] and spoke with Karne and keven and clinical faxed. He lives at [address] [place] [address] and that was included in fax. ENTERED DATE: 04/21/21 17:15 CT COMMENT TYPE: Discharge Planning REVIEWER: Gordon Ball CM met with Mrs. Menendez's mother of the patient, Yojana Menendez, to complete DC plan and to evaluate needs. Mrs. Menendez stated that the patient readmitted because he had uncontrolled hiccups as well as bladder and bowel problems. Mrs. Menendez stated that the patient was able to obtain his medications after last discharge but unfortunately was not able to keep his follow up appointment. Mrs. Menendez stated that the patient followed the dc instructions given to him. It appears that this readmission was due to an exacerbation of his chronic conditions related to his delayed disability. The patient lives in an assisted living apartment, called [facility], during the week and on weekends with his mother. The coordinator for [facility] is Antoinette ([phone]). Mrs. Menendez believes that any care that occurs at the residence must be coordinated through Antoinette. The residence is safe and has electricity and running water. Mrs. Menendez stated that the patient has no problems paying for medications and the patient fills his medications at [facility]. Mrs. Menendez stated that his primary care physician is Dr. Karimi. CM discussed availability of home health, rehab services, and medical equipment. Mrs. Menendez declined SNF, IPR, and DME but would like to have home health monitor the patient's sodium and medications for a while post discharge. Mrs. Menendez would like [facility] services with either [facility], or [facility]. CHRIS signed and placed in chart. CM spoke with Antoinette. Antoinette stated that home health is welcome to conduct visits at the residences. Mrs. Menendez voiced no other patient needs at this time and is satisfied with DC plan. DC IMM delivered, explained, signed by Mrs. Menendez, and placed in chart. Signed form also left with Mrs. Menendez. CM will continue to follow and will assist as needed with dc plans/needs. DCP REVIEW SUMMARY ANTICIPATED D/C DATE: 04/21/2021 EXPECTED LOS : 1 CASE STATUS: DCP Initiated INITIAL REVIEW: 04/19/2021 INITIAL REVIEWER: Gordon Ball FINAL DISCHARGE DISPOSITION: : FINAL REVIEWER: FINAL REVIEW DATE: DCP Focus Questions & Answers DCP Evaluation QUESTION: ANSWER Patient gives permission to discuss discharge plans with: (name, relationship and number) : mother of the patient, Yojana Menendez, Patient's ability to cope with chronic illness : d. No chronic illness Patient's current cognitive status: : Oriented to situation Family / Caregiver's ability to cope with chronic illness: : a. Adequate (ability to meet patient's medical needs, ensures patient attends medical appts.) Patient and/or caregiver agree upon recommended discharge plan? : Yes Physical Status: : Partial care dependence Family / Caregiver's ability to cope with chronic illness: : a. Adequate (ability to meet patient's medical needs, ensures patient attends medical appts.) Functional screen assessment: : Basic needs can adequately be met by self Does the patient have the ability to pay for or attain post discharge needs / services? : Yes Partial Dependence, assistance required for: : Ambulation / Mobility Partial Dependence, assistance required for: : Bathing Partial Dependence, assistance required for: : Dressing Partial Dependence, assistance required for: : Eating Living Arrangements: : Assisted Living Is there a likelihood that the patient will require additional services to return to the preadmission environment? : Yes Equipment needed for post hospitalization: : None Patient with capacity for self-care or can be cared for in same environment as prior to hospitalization? : Yes Facility / Agency name and contact information from Question 3 (if applicable): : [facility] Physical environment modification needed / anticipated for discharge: : No Medication Management: : Patient states can afford medications Medication Management: : Patient states can read and understand medication labels Pharmacy name(s): : [facility] Does Patient have transportation to get home and to follow-up medical appointments when discharged from the hospital? : Yes Would patient like to participate in any Care Coordination programs (if applicable): : Not applicable Does the patient have electricity at home? : Yes Does the patient have running water in their house? : Yes Equipment in use: : None Mental health screen: : No mental health history DCP Re-evaluation QUESTION: ANSWER Would patient like to participate in any Care Coordination programs (if applicable): : Not applicable PATIENT: ALONDRA ANDREW ENCOUNTER: [id number] MEDICAL RECORD#: [id number] ADMISSION DATE: 04/20/2021 DISCHARGE DATE: 04/22/2021 ATTENDING MD: TAMI: AGE: 56 MARITAL STATUS: M DC PLAN ID: [id number] FACILITY: [facility] PRINTED ON: 04/22/21 17:42 CT All edits/amendments must be made on the electronic document DICTATION DATE: 04/22/211741 ANNEALING TORCH OPERATOR: HUYEN 04/22/211741 RPT#: [id number] DC DATE:04/22/21 STATUS: DIS IN [facility] [address] [place] [address] END OF REPORT
--- NOTE | 2021-04-23 07:10 | MORECARE ---
CASE MANAGEMENT DISCHARGE SUMMARY PATIENT: ALONDRA ANDREW UNIT: [id number] ADM DATE: 04/20/21 AGE: 56 : 67 SEX: M ROOM/BED: D.9488 AUTHOR: MAHI,DOC PHYSICIAN: REFERRING PHYSICIAN: MICHELLE REYES MD DATE OF SERVICE: 04/23/21 Case Management Discharge Planning Summary COMMENTS ENTERED DATE: 04/22/21 17:29 CT COMMENT TYPE: Discharge Planning REVIEWER: Yuridia Rahman states that they cannot help with HHS because of [employer]. I had spoken to patient's mother and she states "I don't think he needs it." She states he can get his Na level checked at his PCP's office and now they know to restrict his water intake. ENTERED DATE: 04/22/21 11:07 CT COMMENT TYPE: Discharge Planning REVIEWER: Yuridia STRINGER WITH [facility] STATES THEY CANNOT ACCEPT DUE TO INSURANCE. I SENT REFERRAL TO [facility] AND CONTACTED [facility]. I SPOKE WITH PATIENT'S MOTHER AND SHE STATES IF UNABLE TO GET [facility], HE WOULD BE OK WITHOUT IT. STATES CAN GET HIS NA CHECKED AT THE PCP OFFICE AND THEY HAVE A NURSE AT [facility] FOR MEDICATION MANAGEMENT IF NEEDED. ENTERED DATE: 04/22/21 8:25 CT COMMENT TYPE: Discharge Planning REVIEWER: Yuridia Emily Received a call from Phyllis at [facility], they no longer take [employer]. I called [facility] and spoke with Karen and keven and clinical faxed. He lives at [address] [place] [address] and that was included in fax. ENTERED DATE: 04/21/21 17:15 CT COMMENT TYPE: Discharge Planning REVIEWER: Gordon Ball CM met with Mrs. Menendez's mother of the patient, Yojana Menendez, to complete DC plan and to evaluate needs. Mrs. Menendez stated that the patient readmitted because he had uncontrolled hiccups as well as bladder and bowel problems. Mrs. Menendez stated that the patient was able to obtain his medications after last discharge but unfortunately was not able to keep his follow up appointment. Mrs. Menendez stated that the patient followed the dc instructions given to him. It appears that this readmission was due to an exacerbation of his chronic conditions related to his delayed disability. The patient lives in an assisted living apartment, called [facility], during the week and on weekends with his mother. The coordinator for [facility] is Antoinette ([phone]). Mrs. Menendez believes that any care that occurs at the residence must be coordinated through Antoinette. The residence is safe and has electricity and running water. Mrs. Menendez stated that the patient has no problems paying for medications and the patient fills his medications at [facility]. Mrs. Menendez stated that his primary care physician is Dr. Karimi. CM discussed availability of home health, rehab services, and medical equipment. Mrs. Menendez declined SNF, IPR, and DME but would like to have home health monitor the patient's sodium and medications for a while post discharge. Mrs. Menendez would like [facility] services with either [facility], or [facility]. CHRIS signed and placed in chart. CM spoke with Antoinette. Antoinette stated that home health is welcome to conduct visits at the residences. Mrs. Menendez voiced no other patient needs at this time and is satisfied with DC plan. DC IMM delivered, explained, signed by Mrs. Menendez, and placed in chart. Signed form also left with Mrs. Menendez. CM will continue to follow and will assist as needed with dc plans/needs. DCP REVIEW SUMMARY ANTICIPATED D/C DATE: 04/21/2021 EXPECTED LOS : 1 CASE STATUS: DCP Complete INITIAL REVIEW: 04/19/2021 INITIAL REVIEWER: Gordon Ball FINAL DISCHARGE DISPOSITION: 01 : Home or Self Care (Routine Discharge) FINAL REVIEWER: Yuridia Diaz FINAL REVIEW DATE: 04/23/2021 DCP Focus Questions & Answers DCP Evaluation QUESTION: ANSWER Patient and/or caregiver agree upon recommended discharge plan? : Yes Family / Caregiver's ability to cope with chronic illness: : a. Adequate (ability to meet patient's medical needs, ensures patient attends medical appts.) Patient's current cognitive status: : Oriented to situation Patient's ability to cope with chronic illness : d. No chronic illness Patient gives permission to discuss discharge plans with: (name, relationship and number) : mother of the patient, Yojana Menendez, Does the patient have the ability to pay for or attain post discharge needs / services? : Yes Functional screen assessment: : Basic needs can adequately be met by self Family / Caregiver's ability to cope with chronic illness: : a. Adequate (ability to meet patient's medical needs, ensures patient attends medical appts.) Physical Status: : Partial care dependence Equipment needed for post hospitalization: : None Is there a likelihood that the patient will require additional services to return to the preadmission environment? : Yes Living Arrangements: : Assisted Living Partial Dependence, assistance required for: : Eating Partial Dependence, assistance required for: : Dressing Partial Dependence, assistance required for: : Bathing Partial Dependence, assistance required for: : Ambulation / Mobility Patient with capacity for self-care or can be cared for in same environment as prior to hospitalization? : Yes Physical environment modification needed / anticipated for discharge: : No Facility / Agency name and contact information from Question 3 (if applicable): : [facility] Medication Management: : Patient states can read and understand medication labels Medication Management: : Patient states can afford medications Pharmacy name(s): : [facility] Does Patient have transportation to get home and to follow-up medical appointments when discharged from the hospital? : Yes Would patient like to participate in any Care Coordination programs (if applicable): : Not applicable Does the patient have electricity at home? : Yes Does the patient have running water in their house? : Yes Equipment in use: : None Mental health screen: : No mental health history DCP Re-evaluation QUESTION: ANSWER Would patient like to participate in any Care Coordination programs (if applicable): : Not applicable PATIENT: ALONDRA ANDREW ENCOUNTER: [id number] MEDICAL RECORD#: [id number] ADMISSION DATE: 04/20/2021 DISCHARGE DATE: 04/22/2021 ATTENDING MD: TAMI: AGE: 56 MARITAL STATUS: M DC PLAN ID: [id number] FACILITY: [facility] PRINTED ON: 04/23/21 7:10 CT All edits/amendments must be made on the electronic document DICTATION DATE: 04/23/21709 IN SERVICE EDUCATION TEACHER: HUYEN 04/23/21709 RPT#: [id number] DC DATE:04/22/21 STATUS: DIS IN [facility] [address] [place] [address] END OF REPORT
== END 2021-04-22 13:21 | disposition home or self-care (01) | DRG 204 ==
LOC: D.ER 09:09 → D.EDHOLD 11:46 → D.M2 11:46 → OBSVTIME 11:46 → D.EDHOLD 17:10 → D.M2 23:41
PROVIDERS: Emergency Medicine; Family Medicine; Internal Medicine; ADMIT Family Medicine; ATTEND Family Medicine
DX: R06.6 Hiccough (principal); J18.9 Pneumonia, unspecified organism; E87.1 Hypo-osmolality and hyponatremia; E78.5 Hyperlipidemia, unspecified; Q90.9 Down syndrome, unspecified; G40.909 Epilepsy, unspecified, not intractable, without status epilepticus; F41.9 Anxiety disorder, unspecified; N40.0 Benign prostatic hyperplasia without lower urinary tract symptoms; G47.00 Insomnia, unspecified; L60.3 Nail dystrophy

== ENCOUNTER → 2021-05-13 13:38 | Outpatient (CLI) | payer OTHER, MEDICARE ==
[2021-04-20 04:48] VITALS: BMI 20.6
[~2021-05-13 13:38] MED LIST changes: +KENALOG 0.1 % 115 GM TOPICAL
== END | disposition home or self-care (01) ==
LOC: D.RAD 05-07 09:00
PROVIDERS: ATTEND Internal Medicine Pulmonary Disease
DX: Z87.01 Personal history of pneumonia (recurrent) (principal)